=== PATIENT | female | born 1950 | race African-American/Black ===

== ENCOUNTER 2023-11-04 07:31 | Emergency (ER) | payer OTHER, SELFPAY ==
[2023-11-04 07:34] VITALS: BP 156/81
[2023-11-04 08:03] VITALS: BMI 26.6
--- NOTE | 2023-11-04 08:34 | ED.GENMED ---
History of Present Illness
<MANNY Dickerson - Last Filed: 11/04/23 12:40>
General
Chief Complaint: Urinary Symptoms
Source: patient
Exam Limitations: none
Time Seen by Provider: 11/04/23 08:09
Nursing documentation reviewed up to this point in time: agreed with
Travel History
Have you had any contact with someone who has COVID-19?: No
Do you have any symptoms of coronavirus? Fever > 100 degrees, chills, cough, shortness of breath, sore throat, loss of taste or smell, muscle aches, or headache?: No
History of Present Illness
History of Present Illness:
Patient is a 72-year-old female with hypertension hyperlipidemia presents with lower abdominal pain for 1 week. She has noticed urinary frequency for the past few days and last night she was urinating frequently. She denies any nausea vomiting
fever chills back pain. She denies any pain with urination. She denies any chest pain shortness of breath.
Past History
<MANNY Dickerson - Last Filed: 11/04/23 12:40>
Past History
ED Past Medical History: HTN and Hypercholesterolemia
ED Past Surgical History: Orthopedic
Social History
Tobacco: Non-smoker
Alcohol: None
Drug: None
Living: with family
Review of Systems
<MANNY Dickerson - Last Filed: 11/04/23 12:40>
Review of Systems
Allergies reviewed?: Yes
All Other Systems: ROS reviewed and negative except as documented in HPI and ROS
Constitutional: Reports no symptoms; Denies fever, fatigue or chills
Respiratory: Reports no symptoms
Cardiac: Reports no symptoms
ABD/GI: Reports abdominal pain (lower abd pain ); Denies nausea or vomiting
: Reports frequency
Musculoskeletal: Reports no symptoms
Skin: Reports no symptoms
Neurological: Reports no symptoms
Psychiatric: Reports no symptoms
Phy Exam
<MANNY Dickerson - Last Filed: 11/04/23 12:40>
General Physical Exam
General Presentation: no apparent distress
General age: appears stated age
General Skin: warm and dry
General Habitus: normal
General Mental: alert
General Hydration: appears well hydrated
Cardiovascular Exam
Cardiovascular Exam: regular rate/rhythm, no murmur and normal peripheral pulses
Pulmonary Exam
Pulmonary Exam: lungs clear and no respiratory distress
Gastrointestinal Exam
Gastrointestinal Exam: soft and other ( mild tender lower abd region)
Neurological Exam
Neurological Exam: alert and oriented x3
Musculoskeletal Exam
Musculoskeletal Exam: full ROM
Skin Exam
Skin Exam: normal color and warm/dry
Psychiatric Exam
Psychiatric Exam: normal mood/affect
Course
<MANNY Dickerson - Last Filed: 11/04/23 12:40>
Orders/Labs/Results
Orders:
Orders
11/04/23 07:49
Urinalysis Reflex To Culture Urgent
Date Specimen was Collected: 11/04/23
Time Specimen was Collected: 07:38
Urine Microscopic Reflex Cult Urgent
11/04/23 08:52
IV Insert/Care/Rem.- Treatment PRN
0.9% Sodium Chloride 1000 ml [Nss] 1,000 ml IV BOLUS
11/04/23 09:11
Complete Blood Count/With Diff Urgent
Comprehensive Metabolic Panel Urgent
Lipase Urgent
11/04/23 10:08
CT Abd/Pel (IV only)-[facility] only Urgent
Comment:
Reason For Exam: lower abd pain x1 week
11/04/23 12:33
Cephalexin Monohydrate [Keflex] 500 mg PO NOW STA
Abnormal Lab Results
11/04/23 11/04/23
07:49 09:11
Lymphocytes % 20.0 L %
(20.5-51.1)
Sodium 132 L mmol/L
(135-145)
Creatinine 0.5 L mg/dL
(0.6-1.0)
Glucose 106 H mg/dl
(70-99)
Leukocyte Esterase Rfl Trace A
(Negative)
11/04/23 09:11
11/04/23 09:11
Vital Signs
Initial and Last Documented VS:
Initial Vital Signs
Temp Pulse Resp BP Pulse Ox
98.5 F 86 16 156/81 98
11/04/23 07:34 11/04/23 07:34 11/04/23 07:34 11/04/23 07:34 11/04/23 07:34
Last Documented Vital Signs
Temp Pulse Resp BP Pulse Ox
98.5 F 86 16 125/66 98
11/04/23 07:34 11/04/23 07:34 11/04/23 07:34 11/04/23 09:45 11/04/23 07:34
Respiratory Therapist Assistant consulted with Physician
Respiratory Therapist Assistant consulted with physician?: Yes
Name of Physician Consulted: Rissa
<Prasad Kwok, DO - Last Filed: 11/04/23 16:08>
Orders/Labs/Results
Orders:
Orders
11/04/23 07:49
Urinalysis Reflex To Culture Urgent
Date Specimen was Collected: 11/04/23
Time Specimen was Collected: 07:38
Urine Microscopic Reflex Cult Urgent
11/04/23 08:52
IV Insert/Care/Rem.- Treatment PRN
0.9% Sodium Chloride 1000 ml [Nss] 1,000 ml IV BOLUS
11/04/23 09:11
Complete Blood Count/With Diff Urgent
Comprehensive Metabolic Panel Urgent
Lipase Urgent
11/04/23 10:08
CT Abd/Pel (IV only)-[facility] only Urgent
Comment:
Reason For Exam: lower abd pain x1 week
11/04/23 12:33
Cephalexin Monohydrate [Keflex] 500 mg PO NOW STA
Abnormal Lab Results
11/04/23 11/04/23
07:49 09:11
Lymphocytes % 20.0 L %
(20.5-51.1)
Sodium 132 L mmol/L
(135-145)
Creatinine 0.5 L mg/dL
(0.6-1.0)
Glucose 106 H mg/dl
(70-99)
Leukocyte Esterase Rfl Trace A
(Negative)
11/04/23 09:11
11/04/23 09:11
Vital Signs
Initial and Last Documented VS:
Initial Vital Signs
Temp Pulse Resp BP Pulse Ox
98.5 F 86 16 156/81 98
11/04/23 07:34 11/04/23 07:34 11/04/23 07:34 11/04/23 07:34 11/04/23 07:34
Last Documented Vital Signs
Temp Pulse Resp BP Pulse Ox
98.5 F 86 16 125/66 98
11/04/23 07:34 11/04/23 07:34 11/04/23 07:34 11/04/23 09:45 11/04/23 07:34
<MANNY Dickerson - Last Filed: 11/04/23 12:40>
MDM/Problems Addressed
Differential Diagnosis Includes:
Not limited to diverticulitis, UTI
MDM/Problems Addressed:
Patient complains abdominal pain for the past week but noticed urinary frequency for the past few days worse last night. She denies any fever chills nausea vomiting. She does complain of some lower abdominal discomfort.
Patient arrives awake alert is nontoxic in no acute distress afebrile normal white count, normal kidney function.
Patient denies any fevers and is afebrile here.
No acute findings on CAT scan. Despite urine looking unremarkable patient complains of urinary frequency. Patient was eval by ED physician who recommends treating for UTI. I did however discussed with patient and to closely follow-up with
family doctor the next 1 days return if any worsening of symptoms.
Patient does report that she has an appoint with her family doctor tomorrow. Discussed with patient to keep this appointment for follow-up.
Chronic conditions affecting care:
htn /hyperlipidemia
<MANNY Dickerson - Last Filed: 11/04/23 12:40>
*Radiology
Radiology exam reviewed: radiology read reviewed
*Pulse Oximetry
Patient hypoxic: no
*Critical Care Note
Total Time (30-74mins, 75-104mins- exclusive of procedures): Not Applicable
ED Attending Note
<MANNY Dickerson - Last Filed: 11/04/23 12:40>
-
Portions of this chart may have been created with voice recognition software.� Occasional wrong word or��sound alike� substitutions may have occurred due to the inherent limitations of voice recognition software.
<Prasad Kwok DO - Last Filed: 11/04/23 16:08>
ED Attending Note
Patient seen and examined by attending physician: Yes
I performed the substantive portion of visit, reviewed & personally made and approve the management plan that is documented in note by myself or SUSHIL.: Yes
ED Attending Note:
Patient is a 72-year-old female who presents to the emergency department with 1 week of urinary frequency and lower abdominal discomfort. Patient's had nocturia with a malodorous urine. Patient denies fever or chills. Patient denies nausea,
vomiting or diarrhea. Patient has chronic back pain and this is unchanged. Patient had UTIs in the past with similar symptoms. On physical exam patient does not appear to be in any distress. Neck is supple without adenopathy. Heart is regular
without murmur and lungs are clear. Abdomen has minimal suprapubic tenderness. Patient has no cyanosis or edema. Patient's workup is essentially unremarkable. I am concerned that the patient has a symptomatic UTI and will treat as such.
Discharge Plan
Departure
Patient Disposition: Home (Routine Discharge)
Date of Disposition: 11/04/23
Time of Disposition: 12:35
Patient with high blood pressure during this ER visit?: No
Condition: Fair
Covid-19: Not Applicable
Discharge Problem:
Acute UTI
Instructions: Urinary Tract Infection, Adult (DC), BLOOD PRESSURE
Prescriptions:
New
cephalexin 500 mg capsule
500 mg PO Q6H Qty: 28 0RF
No Action
enalapril maleate 10 mg Tablet
10 mg PO BID
aspirin 81 mg Tablet,Delayed Release (Dr/Ec)
81 mg PO DAILY
acetaminophen [Tylenol Extra Strength] 500 mg Tablet
500 mg PO Q6H PRN (Reason: mild pain)
potassium chloride [Klor-Con M20] 20 mEq Tablet,Er Particles/Crystals
20 meq PO BID
amlodipine 10 mg Tablet
10 mg PO DAILY
magnesium oxide 500 mg Tablet
500 mg PO HS
omeprazole 20 mg Capsule,Delayed Release(Dr/Ec)
20 mg PO DAILY
hydrochlorothiazide 25 mg Tablet
25 mg PO DAILY
fluticasone propionate 50 mcg/actuation [place],Suspension
1 spray INTRANASAL HS
bisacodyl 5 mg Tablet
5 mg PO Q48H
duloxetine 60 mg Capsule,Delayed Release(Dr/Ec)
60 mg PO DAILY
cholecalciferol (vitamin D3) 50 mcg (2,000 unit) Tablet
50 mcg PO DAILY
Referrals:
PRIVATE,PHYSICIAN [Family Provider] -
Activity Restrictions/Additional Instructions:
As discussed antibiotic was sent to her pharmacy for urinary tract infection. Take as directed every 6 hours for the next week. Close follow-up with family doctor the next several days return if any worsening of symptoms worsening abdominal pain
back pain nausea vomiting fever chills or any further concerns.
Interventions
Interventions:
*Risk Screen - Suicide Last Done: 11/04/23 07:34
*General Assessment Last Done: 11/04/23 07:34
*Neglect/Abuse Screening Last Done: 11/04/23 07:34
ED- Fall Risk Assessment Last Done: 11/04/23 08:03
*ED COVID-19 Vaccine History Last Done: 11/04/23 08:03
*Nursing Disposition Last Done: 11/04/23 12:56
ED-Female Genitourinary Assessment Last Done: 11/04/23 08:03
Discharge Date and Time
Discharge Date/Time: 11/04/23 12:56
--- NOTE | 2023-11-04 08:39 | EDRN ---
the pt stated to this RN, 'I am trying to pee but i am having a hard time', this RN bladder scanned the pt and 54cc were found in the pts bladder, this RN gave the pt a cup of water to drink, provider notified
[2023-11-04 09:04] VITALS: BP 132/93
[2023-11-04] MEDS: NSS 1000 IV (09:14)
[2023-11-04 09:20] LABS: % Basophils 0.3 % (0-2); % Eosinophils 0.7 % (0-6); % Immature Granulocytes 0.3 % (0-0.5); % Neutrophils 69.7 % (42.2-75.2); Absolute Eosinophils 0.1 10^3/uL (0-0.7); Absolute Lymphocytes 1.4 10^3/uL (1.2-3.4); Absolute Monocytes 0.6 10^3/uL (0.1-0.6); Hematocrit 39.2 % (37.0-47.0); Hemoglobin 13.5 g/dL (12.0-16.0); Mean Corp Hgb Conc. 34.4 g/dL (33.0-37.0); Mean Corpuscular Hgb 30.1 pg (27.0-31.0); Mean Corpuscular Volume 87.3 fL (81.0-99.0); Mean Platelet Volume 9.8 fL (7.4-10.4); Nucleated Red Blood Cells % 0 %; Platelet Count 294 10^3/uL (130-400); Red Blood Cell Count 4.49 10^6/uL (4.20-5.40); Red Cell Dist. Width 13.5 % (11.5-14.5); White Blood Cell Count 7.1 10^3/uL (4.8-10.8)
[2023-11-04 09:45] VITALS: BP 125/66
[2023-11-04 09:53] LABS: ALT (SGPT) 33 U/L (0-35); AST (SGOT) 35 U/L (14-36); Albumin 4.2 g/dl (3.5-5.0); Alkaline Phosphatase 117 U/L (38-126); Blood Urea Nitrogen 12 mg/dl (7-17); Calcium 9.2 mg/dl (8.4-10.2); Carbon Dioxide 29 mmol/L (22-30); Chloride 98 mmol/L (98-107); Estimated Creatinine Clearance 76 ml/min; Glucose 106 mg/dl (70-99); Lipase 47 U/L (23-300); Potassium 3.9 mmol/L (3.5-5.1); Sodium 132 mmol/L (135-145); Total Bilirubin 0.7 mg/dl (0.2-1.3); Total Protein 7.3 g/dl (6.3-8.2); eGFR > 60.00
[2023-11-04 10:09] LABS: Urine Albumin Negative (Neg - Trace); Urine Bilirubin Negative (Negative); Urine Character Clear (Clear); Urine Color Yellow; Urine Glucose Negative (Negative); Urine Ketone Negative (Negative); Urine Leukocyte Trace (Negative); Urine Nitrite Negative (Negative); Urine Occult Blood Negative (Negative); Urine Urobilinogen Negative (Neg - 1+)
[2023-11-04 10:27] LABS: Urine Red Blood Cell 0-2 /HPF (0-2); Urine White Cell 0-2 /HPF (0-5)
== END 2023-11-04 12:56 | disposition home or self-care (01) ==
LOC: EMR 07:31
PROVIDERS: Emergency Medicine; Nurse Practitioner; EMERGENCY PHYSICIAN Emergency Medicine
DX: N39.0 Urinary tract infection, site not specified (principal); M54.9 Dorsalgia, unspecified; I10 Essential (primary) hypertension; E78.00 Pure hypercholesterolemia, unspecified; M19.90 Unspecified osteoarthritis, unspecified site; G89.29 Other chronic pain; Z87.440 Personal history of urinary (tract) infections; Z96.653 Presence of artificial knee joint, bilateral; Z79.82 Long term (current) use of aspirin; Z88.8 Allergy status to other drugs, medicaments and biological substances
CPT/HCPCS: 99285; 51798; 96360; 74177; 80053; 81003; 81015; 83690; 85025; Q9967

== ENCOUNTER 2025-03-09 15:22 | Emergency (ER) | payer OTHER, MEDICARE, SELFPAY ==
[2025-03-09 15:27] VITALS: BP 137/79
--- NOTE | 2025-03-09 17:27 | ED.GENMED ---
History of Present Illness
General
Chief Complaint: Musculo-Skeletal Complaint
Source: patient
Exam Limitations: none
Time Seen by Provider: 03/09/25 17:02
Nursing documentation reviewed up to this point in time: agreed with
History of Present Illness
History of Present Illness:
Patient is a 74-year-old female past medical history of hypertension hyperlipidemia arthritis chronic leg pain on oxycodone presents to the ER for evaluation. Patient reports over the past several days she has had increasing pain in her left leg.
She complains of pain that shoots from her left thigh/buttocks to her left ankle. She does also complains of some pain to her calf. It is not relieved with oxycodone which is what prompted her to come to the ER. She denies any injury. Denies any
redness fever chills. She has chronic burning to the right leg. She denies any bowel or bladder incontinence. Denies any leg weakness. Denies any saddle paresthesia. She has not been eval by specialist for this she is managed by her family
doctor. She has no other complaints.
Past History
Past History
ED Past Medical History: HTN and Hypercholesterolemia
ED Past Surgical History: Orthopedic
Social History
Tobacco: Non-smoker
Alcohol: None
Drug: None
Living: with family
Review of Systems
Review of Systems
Allergies reviewed?: Yes
All Other Systems: ROS reviewed and negative except as documented in HPI and ROS
Phy Exam
General Physical Exam
General Presentation: no apparent distress
General age: appears stated age
General Skin: warm and dry
General Habitus: normal and obese
General Mental: alert
General Hydration: appears well hydrated
Neurological Exam
Neurological Exam: alert, oriented x3, no motor deficits, no sensory deficits and other (Intact sensation to bilateral lower extremities normal dorsiflexion plantarflexion ambulatory with steady gait.)
Musculoskeletal Exam
Musculoskeletal Exam: full ROM and other (Follow lower extremities with strong pulses questionable very minimal swelling to left leg; tender to left posterior calf mildly; able to walk on both legs equally)
Skin Exam
Skin Exam: normal color and warm/dry
Psychiatric Exam
Psychiatric Exam: normal mood/affect
Course
Orders/Labs/Results
Orders:
Orders
03/09/25 17:24
Dexamethasone Sod Phosphate [Decadron] 10 mg IM NOW STA
Venous Doppler Lwr Ext Left [US Periph Venous LOWER Ext LT] Urgent
Comment:
Reason For Exam: pain
Vital Signs
Initial and Last Documented VS:
Initial Vital Signs
Temp Pulse Resp BP Pulse Ox
99.1 F 95 18 137/79 98
03/09/25 15:27 03/09/25 15:27 03/09/25 15:27 03/09/25 15:27 03/09/25 15:27
Last Documented Vital Signs
Temp Pulse Resp BP Pulse Ox
99.1 F 95 18 137/79 98
03/09/25 15:27 03/09/25 15:27 03/09/25 15:27 03/09/25 15:27 03/09/25 17:30
MDM/Problems Addressed
Differential Diagnosis Includes:
Not limited to muscle pain, chronic pain, sciatica
MDM/Problems Addressed:
As documented patient is a 74-year-old female with chronic leg pain worse left leg pain over the past 2 days. Patient is describing radicular pain shooting down from her thigh but area to her ankle. Patient was given a dose of IM Decadron here in
the ER, ultrasound negative. Will DC on steroids with close outpatient follow-up with family doctor. She is on chronic oxycodone.
Chronic conditions affecting care:
Hypertension hyperlipidemia
*Radiology
Radiology exam reviewed: radiology read reviewed
*Pulse Oximetry
SaO2: 98
Oxygen Mode of Delivery: Room air
Patient hypoxic: no
*Critical Care Note
Total Time (30-74mins, 75-104mins- exclusive of procedures): Not Applicable
ED Attending Note
-
Portions of this chart may have been created with voice recognition software.� Occasional wrong word or��sound alike� substitutions may have occurred due to the inherent limitations of voice recognition software.
Discharge Plan
Departure
Patient Disposition: Home (Routine Discharge)
Date of Disposition: 03/09/25
Time of Disposition: 19:48
Patient with high blood pressure during this ER visit?: Yes
Condition: Fair
Covid-19: Not Applicable
Discharge Problem:
Sciatica
Instructions: Sciatica - ED discharge instructions
Prescriptions:
New
prednisone 10 mg Tablet
See Rx Instructions .ROUTE .COMPLEX Qty: 30 0RF
Rx Instructions:
Take By Mouth:
40 mg daily x3 days, 30 mg daily x3 days,
20 mg daily x3 days, 10 mg daily x3 days.
No Action
enalapril maleate 10 mg Tablet
10 mg PO BID
aspirin 81 mg Tablet,Delayed Release (Dr/Ec)
81 mg PO DAILY
acetaminophen [Tylenol Extra Strength] 500 mg Tablet
500 mg PO Q6H PRN (Reason: mild pain)
potassium chloride [Klor-Con M20] 20 mEq Tablet,Er Particles/Crystals
20 meq PO BID
amlodipine 10 mg Tablet
10 mg PO DAILY
magnesium oxide 500 mg Tablet
500 mg PO HS
omeprazole 20 mg Capsule,Delayed Release(Dr/Ec)
20 mg PO DAILY
hydrochlorothiazide 25 mg Tablet
25 mg PO DAILY
fluticasone propionate 50 mcg/actuation [place],Suspension
1 spray INTRANASAL HS
bisacodyl 5 mg Tablet
5 mg PO Q48H
duloxetine 60 mg Capsule,Delayed Release(Dr/Ec)
60 mg PO DAILY
cholecalciferol (vitamin D3) 50 mcg (2,000 unit) Tablet
50 mcg PO DAILY
cephalexin 500 mg capsule
500 mg PO Q6H Qty: 28 0RF
Referrals:
UNKNOWN - PT DOES,NOT KNOW [Family Provider]
Activity Restrictions/Additional Instructions:
As discussed start steroid pack tomorrow. you were given 1 dose here in the ER.
Your ultrasound was negative for blood clot
please follow-up with family doctor in the next several days for reevaluation of pain. Return if any worsening of symptoms.
Interventions
Interventions:
*Risk Screen - Suicide Last Done: 03/09/25 15:27
*General Assessment Last Done: 03/09/25 15:27
*Neglect/Abuse Screening Last Done: 03/09/25 15:27
*ED COVID-19 Vaccine History Last Done: 03/09/25 15:27
ED-Musculoskeletal Assessment Last Done: 03/09/25 17:23
Discharge Date and Time
Print Language: MALAY
[2025-03-09] MEDS: DECADRON 10 MG IM (17:48)
[2025-03-09 20:21] VITALS: BP 138/83
== END 2025-03-09 21:03 | disposition home or self-care (01) ==
LOC: EMR 15:22
PROVIDERS: EMERGENCY PHYSICIAN Emergency Medicine
DX: M54.30 Sciatica, unspecified side (principal); I10 Essential (primary) hypertension; E78.00 Pure hypercholesterolemia, unspecified; M19.90 Unspecified osteoarthritis, unspecified site
CPT/HCPCS: 99284; 96372; 93971